=== PATIENT | female | born 1985 | race Caucasian/White ===

== ENCOUNTER 2017-01-08 09:42 | Outpatient (CLI) | payer OTHER ==
--- NOTE | 2017-01-08 12:18 | RAD ---
HYSTEROSALPINGOGRAM: History: Infertility. FINDINGS: After informed consent was obtained the patient was prepped in normal sterile fashion. Catheter was introduced through the cervical os and contrast was injected showing a normal triangular shaped uter us which is retroverted. Fallopian tubes are normal in size and there is free spillage from both tub es. IMPRESSION: Unremarkable hysterosalpingogram. POS: DIANE
== END 2017-01-08 09:43 | disposition home or self-care (01) ==
LOC: RAD 09:42
PROVIDERS: ATTEND Obstetrics & Gynecology
DX: Z31.41 Encounter for fertility testing (principal)
CPT/HCPCS: 58340; 74740

== ENCOUNTER 2018-01-20 15:23 | Inpatient (IN) | payer OTHER, SELFPAY ==
--- NOTE | 2018-01-20 19:27 | PDOC.LDHP ---
Labor and Delivery H&P Chief complaint: scheduled induction HPI: 32 yo @ 39w2d by LMP c/w 8 week CRL. Antepartum course complicated by hypothyroidism, on synthroid. MFM anatomy sono done due to family h/o CHD. Anatomy sono wnl. Current gestational age (weeks): 39 Due date: 01/25/18 Dating criteria: last menstrual period Grav: 4 Para: 2 OB History Details: 2 term SVDs with preE 1 SAB Current complications: none Abnormal US findings: No Past Medical History: Hypothyroidism, controlled Current medications: pre-raven vitamins, other (synthroid, ASA) Previous surgical history: none Allergies/Adverse Reactions: Allergies Allergy/AdvReac Type Severity Reaction Status Date / Time No Known Allergies Allergy Verified 01/20/18 23:46 Social history: none - Physical Exam Vital signs reviewed and normal: yes Abnormal vital signs: HTN noted before and around epidural. Now normal -mild range. General: NAD Heart: RRR Lungs: CTAB Abdomen: gravid Extremeties: no edema FHT: category 2 (150s, mod brigid, +accels, variable deceles earlier, now resolved) [place] contractions every: q1-2 min - Vaginal Exam cm dilated: 4 (cephalic, AROM clear ) Effacement: 50% Station: -1 - OB Labs Blood type: A RH: positive Antibody Screen: negative HIV: negative RPR: negative HEPSAg: negative 1 hour GCT: negative GBS: negative Urine drug screen: not done Rubella: immune Additional Labs: TSH wnl - Assessment 39w2d IUP Controlled hypothyroidism Elective IOL - Plan Plan: admit to L&D, cervical ripening, informed consent obtained, anesthesia consult for pain management
[2018-01-20] MEDS ORDERED: Lidocaine 2% MPF 10 ML AMP (For Epidural Use) ONE (21:00)
[2018-01-20] MEDS ORDERED: Terbutaline Sulfate 1 MG/ML VIAL ONE (21:00)
[2018-01-20] MEDS ORDERED: Promethazine HCl 25 MG/ML VIAL IM PRN (23:42)
[2018-01-20] MEDS ORDERED: Carboprost 250 MCG/ML AMP IM PRN (23:42)
[2018-01-20] MEDS ORDERED: Misoprostol 200 MCG TAB PR PRN (23:42)
[2018-01-20] MEDS ORDERED: Ondansetron HCl/PF 4 MG/2 ML Vial IVP PRN (23:42)
[2018-01-20] MEDS ORDERED: Acetaminophen 500 MG TAB PO PRN (23:42)
[2018-01-20] MEDS ORDERED: Diphenoxylate HCl/Atropine Tablet PO PRN (23:42)
[2018-01-20] MEDS ORDERED: Lidocaine 1% (PF) 30 ML VIAL SC PRN (23:42)
[2018-01-20] MEDS ORDERED: Ibuprofen 800 MG TAB PO PRN (23:42)
[2018-01-20] MEDS ORDERED: HYDROcodone/Acetaminophen 5/325 mg Tablet PO PRN (23:42)
[2018-01-20] MEDS ORDERED: Zolpidem Tartrate 5 MG TAB PO PRN (23:42)
[2018-01-20] MEDS ORDERED: Methylergonovine 0.2 MG/ML VIAL IM PRN (23:42)
[2018-01-20] MEDS ORDERED: Butorphanol Tartrate 1 MG/ML VIAL SLOW IVP PRN (23:42)
[2018-01-20 23:58] VITALS: BMI 28.4
[2018-01-21] MEDS: Lactated Ringer's 1,000 ML IV SCH ×2 (00:05→07:45)
[2018-01-21] MEDS: Misoprostol 100 MCG TAB VAG SCH ×4 (00:25→16:02)
[2018-01-21 00:30] LABS: Hemoglobin 11.8 g/dL (12.0-16.0); Mean Corpuscular HGB CONC 34.5 g/dL (32.0-36.0); Mean Corpuscular Hemoglobin 29.9 pg (27.0-31.0); Mean Corpuscular Volume 86.9 fL (78.0-98.0); Mean Platelet Volume 7.3 fL (7.4-10.4); Platelet Count 337 thou/uL (130-400); RBC Distribution Width 13.3 % (11.5-14.5); Red Blood Cell (RBC) Count 3.94 mill/uL (4.20-5.40); White Blood Cell (WBC) Count 9.1 thou/uL (4.8-10.8)
[2018-01-21 01:04] LABS: Syphilis Antibody Nonreactive (Nonreactive); Syphilis Antibody Index 0.04 S/CO (<1.00 Non-Reactive)
[2018-01-21 01:05] LABS: HBSAg Index 0.34 S/CO (0-0.99); HIV (1/2) Antibody/Antigen Non-Reactive (NonReactive); HIV 1/2 INDEX 0.13 S/CO (<1.00); Hep B Surf Ag Non-Reactive S/CO (NonReactive)
[2018-01-21] MEDS ORDERED: NS w/ Oxytocin 10 units 500 ML IV SCH (06:00)
[2018-01-21] MEDS ORDERED: Fentanyl 4 mcg/Bup 0.1% Cadd 100 ML ONE (07:01)
[2018-01-21] MEDS ORDERED: Acetaminophen 325 MG TAB PO PRN (08:18)
[2018-01-21] MEDS ORDERED: ePHEDrine/0.9% NaCl/PF SYRINGE 50 mg/10 ml SLOW IVP PRN (08:18)
[2018-01-21] MEDS ORDERED: Lactated Ringer's 500 ML IV PRN (08:18)
[2018-01-21] MEDS ORDERED: Naloxone HCl 0.4 mg/ml Vial IVP PRN ×2 (08:18)
[2018-01-21] MEDS ORDERED: Eucerin (Mineral Oil/Petrolatum,White) 30 gm Jar TOP PRN (08:18)
[2018-01-21] MEDS ORDERED: Promethazine HCl 25 MG/ML VIAL IM PRN (08:18)
[2018-01-21] MEDS ORDERED: diphenhydrAMINE 50 MG/ML VIAL IVP PRN (08:18)
[2018-01-21] MEDS ORDERED: Ondansetron HCl/PF 4 MG/2 ML Vial IVP PRN (08:18)
[2018-01-21] MEDS ORDERED: Communication Order-Pharmacy FS SCH (08:30)
[2018-01-21] MEDS ORDERED: Fentanyl 4 mcg/Bupivacaine 0.1% Cassette 100 ML EPIDURAL SCH (08:30)
[2018-01-21] MEDS ORDERED: Terbutaline Sulfate 1 MG/ML VIAL SC SCH (09:30)
[2018-01-21] MEDS: NS / Oxytocin 40 units/1000ml 1,000 ML IV PRN ×2 (11:33→14:01)
[2018-01-21 11:39] LABS: Base Excess (BEa) -5.3 mEq/L (-2.0 to +3.0)
--- NOTE | 2018-01-21 11:51 | PDOC.OPDEL ---
OB Operative/Delivery Note Delivery Dr/Surgeon: Mel Washington DO Pre-Delivery Diagnosis: elective induction Procedure/Post Delivery Dx: spontaneous vaginal delivery Weeks gestation: 39 - Findings A Sex: male - 1 min: 8 - 5 min: 9 - Additional Findings/Plan Placenta delivered: spontaneous Repaired Obstetrical Laceration: 1st degree Estimated blood loss: QBL 334 cc Compilations/Other Findings: in OA position with compound presentation Tight nuchal cord x 1 NICU at delivery due to cat 2 strip Cord gases collected and wnl. Post delivery plan: routine recovery
[2018-01-21] MEDS ORDERED: Acetaminophen 500 MG TAB PO PRN (18:24)
[2018-01-21] MEDS: traMADol HCl 50 MG TAB PO PRN (20:34)
[2018-01-21] MEDS: Docusate Calcium (SURFAK) 240 MG CAP PO SCH (20:34)
[2018-01-21] MEDS: Ibuprofen 800 MG TAB PO SCH (21:10)
[2018-01-22 03:37] VITALS: BP 115/66
[2018-01-22] MEDS: Ibuprofen 800 MG TAB PO SCH ×2 (05:17→13:35)
[2018-01-22] MEDS: traMADol HCl 50 MG TAB PO PRN (05:27)
--- NOTE | 2018-01-22 06:53 | PDOC.PP ---
Post Progress Note Post Day #: 1 Subjective: Moderate pain and cramping. Minimal lochia. Voiding, ambulating, tolerating PO. PO intake tolerated: yes Flatus: yes Ambulation: yes Vital Signs (12 hours) Temp Pulse Resp BP Pulse Ox 01/22/18 03:33 98.3 F 80 18 115/66 97 01/22/18 00:35 98.1 F 86 18 114/61 97 01/21/18 19:25 98.9 F 82 18 102/60 98 Weight Weight 171 lb - Physical Examination General: NAD Cardiovascular: RRR Respiratory: non-labored breathing Abdominal: no distention, appropriately TTP Fundus firm & at: below umbilicus Extremities: negative homans (B) Neurological: no gross focal deficits Psychiatric: A&Ox3 Result Diagrams: 01/20/18 00:05 Additional Labs: Post Labs Blood Type A POSITIVE 01/21/18 00:05 Hep Bs Antigen Non-Reactive S/CO (NonReactive) 01/20/18 00:05 (1) Vaginal delivery Code(s): O80 - ENCOUNTER FOR FULL-TERM UNCOMPLICATED DELIVERY Status: Acute - Assessment/Plan PPD1 VSSAF Add [place] for pain PRN. Stable for d/c home when infant ready for d/c F/U 6 weeks.
[2018-01-22] MEDS ORDERED: HYDROcodone/Acetaminophen 5/325 mg Tablet PO PRN (06:55)
[2018-01-22 07:54] VITALS: TEMP 98.9
[2018-01-22] MEDS ORDERED: Prenatal Vitamin 1 TAB PO SCH (09:00)
[2018-01-22] MEDS: Docusate Calcium (SURFAK) 240 MG CAP PO SCH (09:28)
== END 2018-01-22 16:10 | disposition home or self-care (01) | DRG 807 ==
LOC: L&D 22:20 → 3SW 01-21 14:34 → EDSTATUS 01-25 15:22
PROVIDERS: ADMIT Obstetrics & Gynecology; ATTEND Obstetrics & Gynecology
PROC: 10E0XZZ Delivery of Products of Conception, External Approach (ICD-10-PCS; principal; 2018-01-20)
PROC: 3E0P7VZ Introduction of Hormone into Female Reproductive, Via Natural or Artificial Opening (ICD-10-PCS; 2018-01-20)
PROC: 0HQ9XZZ Repair Perineum Skin, External Approach (ICD-10-PCS; 2018-01-20)
PROC: 4A0HXCZ Measurement of Products of Conception, Cardiac Rate, External Approach (ICD-10-PCS; 2018-01-20)
DX: O69.81X0 Labor and delivery complicated by cord around neck, without compression, not applicable or unspecified (principal); Z37.0 Single live birth; O99.284 Endocrine, nutritional and metabolic diseases complicating childbirth; E03.9 Hypothyroidism, unspecified; O76 Abnormality in fetal heart rate and rhythm complicating labor and delivery; O13.4 Gestational [pregnancy-induced] hypertension without significant proteinuria, complicating childbirth; O70.0 First degree perineal laceration during delivery; O32.6XX0 Maternal care for compound presentation, not applicable or unspecified; Z3A.39 39 weeks gestation of pregnancy
CPT/HCPCS: 82805; 85027; 86780; 86850; 86900; 86901; 87340; 87389; J2001; J3105